=== PATIENT | female | born 1955 | race Caucasian/White ===

== ENCOUNTER 2016-03-07 | Outpatient (CLI) | payer OTHER | END 2016-03-07 17:45 | disposition critical access hospital (66) | CPT/HCPCS: A0425; A0427 ==

== ENCOUNTER 2016-03-07 17:57 | Emergency (ER) | payer OTHER ==
[2016-03-07] MEDS ORDERED: diazePAM INJ 5 MG/ML SYRINGE IVP STA (18:52)
[2016-03-07] MEDS ORDERED: ONDANSETRON 4 MG/2 ML VIAL IVP STA (18:52)
[2016-03-07] MEDS ORDERED: SODIUM CHLORIDE 0.9% 1,000 ML IV ONE (18:52)
[2016-03-07] MEDS ORDERED: diazePAM INJ 5 MG/ML SYRINGE ONE (18:58)
[2016-03-07] MEDS ORDERED: ONDANSETRON 4 MG/2 ML VIAL ONE (18:59)
[2016-03-07] MEDS ORDERED: MECLIZINE 12.5 MG TABLET PO STA ×2 (19:33→20:24)
[2016-03-07] MEDS ORDERED: MECLIZINE 12.5 MG TABLET PO ONE ×2 (19:39→20:27)
[2016-03-07] MEDS ORDERED: ONDANSETRON ODT 4 MG Prepack 2 TL STA (20:24)
[2016-03-07] MEDS ORDERED: ONDANSETRON ODT 4 MG Prepack 2 TL ONE (20:27)
== END 2016-03-07 20:30 | disposition home or self-care (01) ==
DX: H81.391 Other peripheral vertigo, right ear (principal); J44.9 Chronic obstructive pulmonary disease, unspecified; I10 Essential (primary) hypertension; J45.909 Unspecified asthma, uncomplicated; Z87.891 Personal history of nicotine dependence
CPT/HCPCS: 36415; 80053; 83690; 85025; 96374; 96375; 99284; A9270

== ENCOUNTER 2016-03-13 10:17 | Outpatient (CLI) | payer OTHER | END 2016-03-13 10:18 | disposition home or self-care (01) | DX: E78.00 Pure hypercholesterolemia, unspecified (principal); R73.9 Hyperglycemia, unspecified; Z51.81 Encounter for therapeutic drug level monitoring ==

== ENCOUNTER 2016-07-20 08:00 | Outpatient (CLI) | payer OTHER ==
[2016-07-20 19:47] LABS: CALCIUM 9.2 mg/dL (8.5-10.3); CREATININE 0.6 mg/dL (0.4-1.0); POTASSIUM 3.7 mmol/L (3.5-5.0)
== END 2016-07-20 08:01 | disposition home or self-care (01) ==
LOC: LAB.WCP 08:00
PROVIDERS: ATTEND Physician Assistant Medical
DX: Z51.81 Encounter for therapeutic drug level monitoring (principal)
CPT/HCPCS: 36415; 80048

== ENCOUNTER 2016-07-23 08:58 | Emergency (ER) | payer OTHER ==
[2016-07-23 11:25] VITALS: BP 165/88
--- NOTE | 2016-07-23 11:35 | ED Physician Documentation ---
History of Present Illness - Stated complaint Stated Complaint: HEAD SPINNING - Chief complaint Chief Complaint: General - History obtained from History obtained from: Patient - History of Present Illness Timing: Other (60-year-old woman has been having ongoing intermittent vertigo for the last 6 months or so. Maybe once a month. Meclizine is helpful but it takes a while to work. She describes a spinning sensation associated with nausea and vomiting. There is no associated diplopia, headache, weakness, numbness, or tingling. She seen her physician for this and it is planning an outpatient MRI. 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 - Present Medications Home Medications: Ambulatory Orders Medication Instructions Recorded Confirmed Ipratropium [Atrovent] 2 puffs PO PRN PRN 09/13/13 07/23/16 Tiotropium [place] [Spiriva] 1 puffs INH DAILY 09/13/13 07/23/16 Fluticasone [Flonase] 1 spray PO DAILY 03/07/16 07/23/16 Meclizine [Antivert] 25 mg PO Q6H PRN #10 tablet 03/07/16 07/23/16 Mometasone/Formoterol [Dulera 200 1 spray PO DAILY 03/07/16 07/23/16 Mcg/5 Mcg Inhaler] Ondansetron HCl [Zofran] 4 mg PO Q6H PRN #10 tablet 03/07/16 07/23/16 Valsartan/Hydrochlorothiazide 1 tab PO DAILY 03/07/16 07/23/16 [Diovan Hct 320-12.5 mg Tab] Ondansetron HCl [Zofran] 4 mg PO Q6H PRN #10 tablet 07/23/16 - Allergies Allergies/Adverse Reactions: Allergies Allergy/AdvReac Type Severity Reaction Status Date / Time Sulfa (Sulfonamide Allergy Rash Verified 09/13/13 21:02 Antibiotics) - Social History Does the pt smoke?: Yes Smoking Status: Former smoker Does the pt drink ETOH?: Yes Does the pt have substance abuse?: No - Immunizations Immunizations are current?: No PD ED PE NORMAL - Vitals Vital signs reviewed: Yes - General General: Alert and oriented X 3, No acute distress - HEENT HEENT: PERRL, EOMI, Ears normal, Pharynx benign - Neck Neck: Supple, no meningeal sign, No bony TTP - Neuro Neuro: Alert and oriented X 3, No motor deficit, No sensory deficit, Normal speech, Other (NIHSS zero) - Psych Psych: Normal mood, Normal affect Results - Vitals Vitals: Vital Signs - 24 hr 07/23/16 07/23/16 09:06 11:24 Temperature 36.3 C L Heart Rate 86 88 Respiratory 16 18 Rate Blood Pressure 149/87 H 165/88 H O2 Saturation 97 99 Oxygen O2 Source Room air PD MEDICAL DECISION MAKING - ED course ED course: 60-year-old woman with recurrent intermittent peripheral vertigo by history, followup was advised, she is feeling better at this juncture. Departure - Departure Disposition: 01 Home, Self Care Clinical Impression: Peripheral vertigo Qualifiers: Laterality: unspecified laterality Qualified Code(s): H81.399 - Other peripheral vertigo, unspecified ear Condition: Good Record reviewed to determine appropriate education?: Yes Instructions: ED BPV Vertigo Prescriptions: Ondansetron HCl [Zofran] 4 mg PO Q6H PRN #10 tablet PRN Reason: Nausea / Vomiting Comments: Your blood pressure was elevated today on check in to the emergency department. This does not mean that you have hypertension, it is a common phenomenon to check into the emergency department and have elevated blood pressure. I recommend that you see your primary care physician within the week to have it rechecked when you're feeling better.
== END 2016-07-23 11:49 | disposition home or self-care (01) ==
LOC: ED 08:58
DX: H81.399 Other peripheral vertigo, unspecified ear (principal); I10 Essential (primary) hypertension; J44.9 Chronic obstructive pulmonary disease, unspecified; J45.909 Unspecified asthma, uncomplicated; Z87.891 Personal history of nicotine dependence
CPT/HCPCS: 99283

== ENCOUNTER 2016-08-13 12:58 | Outpatient (CLI) | payer OTHER ==
[2016-08-13] MEDS ORDERED: GADOBUTROL 10 MMOL/10 ML SYRINGE IVP ONE (13:46)
--- NOTE | 2016-08-13 15:04 | MRI Report ---
EXAM: MRI BRAIN AND INTERNAL AUDITORY CANAL (IAC), WITHOUT WITH CONTRAST. EXAM DATE: 08/13/2016 01:59 PM. CLINICAL HISTORY: Vertigo. COMPARISON: None. TECHNIQUE: Multiplanar, multisequence T1-weighted and fluid-sensitive MRA sequences of the brain and IACs were performed. Other: None. IV Contrast: 9 cc Gadavist. FINDINGS: Brain Volume: Normal for age. Parenchyma/Dura: No masses, infarcts, or hemorrhage. No white matter lesions identified. No cortical signal abnormality is seen. No abnormal enhancement. Internal Auditory Canals (IACs): Normal. No cranial nerve lesion or inflammatory process identified. The inner ear structures are symmetric and unremarkable. Ventricles/Cisterns: No hydrocephalus. No abnormal extra-axial fluid collection or hemorrhage. Orbits: The globes, optic nerve sheath complex, extraocular muscles, and orbital fat are unremarkable . Sella Turcica: The pituitary gland, cavernous sinuses, suprasellar cistern, and optic chiasm are unre markable. A tiny, 1.4 mm, cyst is seen superiorly in the midline of the pituitary gland at the base o f the pituitary stalk. This could represent small focus of invagination of CSF versus small pars inte rmedia cyst. Vasculature: Normal signal flow void is seen in the major arterial structures at the skull base. The left vertebral artery is dominant. The dural sinuses are patent and enhance normally. Sinuses: No sinusitis evident. Bones: Normal. Other: None. IMPRESSION: 1. Negative MRI of the brain without and with contrast. No acute abnormality. 2. Negative MRI of the IAC and posterior fossa. [facility] Referring Provider Line: [phone] SITE ID: [id number]
== END 2016-08-13 12:59 | disposition home or self-care (01) ==
LOC: DI 12:58
PROVIDERS: ATTEND Physician Assistant Medical
DX: R42 Dizziness and giddiness (principal)
CPT/HCPCS: 70553; A9585

== ENCOUNTER 2018-10-24 10:07 | Outpatient (CLI) | payer OTHER ==
[2018-10-24 10:29] LABS: BASOPHILS % (AUTO) 0.5 %; EOSINOPHILS # (AUTO) 0.1 10^3/uL (0.0-0.7); EOSINOPHILS % (AUTO) 1.3 %; HGB - HEMOGLOBIN 14.2 g/dL (12.0-16.0); LYMPHOCYTES # (AUTO) 1.9 10^3/uL (1.5-3.5); LYMPHOCYTES % (AUTO) 33.3 %; MEAN CORPUSCULAR HEMOGLOBIN 32.7 pg (27.0-31.0); MEAN CORPUSCULAR HGB CONC 33.1 g/dL (32.0-36.0); MEAN CORPUSCULAR VOLUME 98.8 fL (81.0-99.0); MEAN PLATELET VOLUME 9.8 fL (7.9-10.8); MONOCYTES # (AUTO) 0.5 10^3/uL (0.0-1.0); MONOCYTES % (AUTO) 9.5 %; NEUTROPHILS # (AUTO) 3.1 10^3/uL (1.5-6.6); NEUTROPHILS % (AUTO) 55.2 %; PLT - PLATELET COUNT 233 10^3/uL (130-450); RED BLOOD COUNT 4.34 10^6/uL (4.20-5.40); RED CELL DISTRIBUTION WIDTH 12.7 % (12.0-15.0); WHITE BLOOD COUNT 5.6 x10^3/uL (4.8-10.8)
[2018-10-24 10:52] LABS: HB2 TOTAL 14.7 g/dL; HEMOGLOBIN A1C 0.55 g/dL; HEMOGLOBIN A1C % 5.6 % (4.6-6.2)
[2018-10-24 13:42] LABS: ALBUMIN 4.6 g/dL (3.2-5.5); ALBUMIN/GLOBULIN RATIO 1.6 (1.0-2.2); ALKALINE PHOSPHATASE 16 IU/L (42-121); ALT ALANINE AMINOTRANSFERASE 35 IU/L (10-60); AST ASPARTATE AMINOTRANSFERASE 28 IU/L (10-42); BILIRUBIN,TOTAL 0.8 mg/dL (0.2-1.0); BUN - BLOOD UREA NITROGEN 11 mg/dL (6-20); CALCIUM 9.1 mg/dL (8.5-10.3); CARBON DIOXIDE - CO2 29 mmol/L (21-32); CHLORIDE 98 mmol/L (101-111); CHOLESTEROL 210 mg/dL; CREATININE 0.6 mg/dL (0.4-1.0); GFR - MDRD 100 (>89); GLUCOSE 113 mg/dL (70-100); HDL CHOLESTEROL 105 mg/dL; SODIUM 138 mmol/L (135-145); TOTAL PROTEIN 7.5 g/dL (6.7-8.2)
== END 2018-10-24 10:08 | disposition home or self-care (01) ==
LOC: LAB 10:07
PROVIDERS: ATTEND Physician Assistant Medical
DX: I10 Essential (primary) hypertension (principal); E78.5 Hyperlipidemia, unspecified; R73.9 Hyperglycemia, unspecified
CPT/HCPCS: 36415; 80053; 80061; 83036; 83721; 84443; 85025

== ENCOUNTER 2019-01-07 11:40 | Day surgery (SDC) | payer OTHER ==
[2019-01-07] MEDS ORDERED: LACTATED RINGERS 1,000 ML IV ONE (11:43)
[2019-01-07] MEDS ORDERED: fentaNYL 250 MCG/5 ML VIAL IVP ONE (13:11)
[2019-01-07] MEDS ORDERED: MIDAZOLAM 2 MG/2 ML VIAL IVP ONE (13:11)
[2019-01-07 14:21] VITALS: BP 128/87
== END 2019-01-07 11:41 | disposition home or self-care (01) ==
LOC: SDS 11:40
PROVIDERS: ATTEND Surgery
PROC: 0DBK8ZZ Excision of Ascending Colon, Via Natural or Artificial Opening Endoscopic (ICD-10-PCS; 2019-01-07)
PROC: 0DBL8ZZ Excision of Transverse Colon, Via Natural or Artificial Opening Endoscopic (ICD-10-PCS; principal; 2019-01-07 12:45)
DX: Z12.11 Encounter for screening for malignant neoplasm of colon (principal); D12.2 Benign neoplasm of ascending colon; D12.3 Benign neoplasm of transverse colon; K57.30 Diverticulosis of large intestine without perforation or abscess without bleeding; J43.9 Emphysema, unspecified; I10 Essential (primary) hypertension; H91.90 Unspecified hearing loss, unspecified ear; Z79.51 Long term (current) use of inhaled steroids; Z87.891 Personal history of nicotine dependence; J32.9 Chronic sinusitis, unspecified
CPT/HCPCS: 45380; 45385; J3010; J7120

== ENCOUNTER 2019-04-09 11:14 | Outpatient (CLI) | payer BC, MEDICARE ==
--- NOTE | 2019-04-09 12:40 | Mammography Report ---
Reason: ROUTINE MAMMO Procedure Date: 04/09/2019 Accession Number: [id number] / [id number] Procedure: BRETT - Screening Mammo w/Roland CPT Code: Final Report FULL RESULT: EXAM: Screening Mammo w/Roland DATE: 04/09/2019 11:51 AM CLINICAL HISTORY: Screening encounter. Family history of breast cancer in a sister at the age of 45. TECHNIQUE: (B) - Bilateral CC and MLO views were obtained. COMPARISON: 08/17/2014 and 04/22/2013. PARENCHYMAL PATTERN: (D) - The breast(s) demonstrate(s) heterogeneously dense fibroglandular parenchyma. FINDINGS: In the right superior medial breast at the 1:00 position approximately 9 cm from the nipple is a focal asymmetry with architectural distortion and possibly calcifications which requires additional spot views with magnification as well as ultrasound for clarification. There are no suspicious masses, calcifications, or areas of distortion in the left breast. IMPRESSION: Incomplete examination. BI-RADS category 0. RECOMMENDATION: (ADDMU) - Additional views using both Mammography and Ultrasound recommended. Right breast BI-RADS CATEGORY: (0) - Incomplete Examination - need additional evaluation. STANDARD QUALIFYING STATEMENTS: 1. This examination was not reviewed with the aid of Computer-Aided Detection (CAD). 2. A negative or benign imaging report should not preclude biopsy if clinically suspicious findings are present. 3. Dense breasts may obscure an underlying neoplasm. 4. This examination was reviewed with the aid of 3D breast imaging (tomosynthesis).
== END 2019-04-09 11:15 | disposition home or self-care (01) ==
LOC: DI 11:14
DX: Z12.31 Encounter for screening mammogram for malignant neoplasm of breast (principal); R92.8 Other abnormal and inconclusive findings on diagnostic imaging of breast; Z80.3 Family history of malignant neoplasm of breast
CPT/HCPCS: 77063; 77067

== ENCOUNTER 2020-04-21 08:51 | Outpatient (CLI) | payer MEDICARE, OTHER ==
--- NOTE | 2020-04-22 12:11 | Ultrasound Report ---
LIMITED ULTRASOUND OF RIGHT BREAST: 04/21/2020 CLINICAL: Palpable right breast lump. Comparison is made to exams dated: 04/21/2020 mammogram, 04/09/2019 mammogram, 08/17/2014 mammogram, and [facility] Color flow and real-time ultrasound of the right breast 1 o'clock, and retroareolar regions were perf ormed. Key scale images of the real-time examination were reviewed. IMPRESSION: SUSPICIOUS OF MALIGNANCY There is no abnormality seen in the right breast to correspond with the area of clinical concern and palpable abnormality. There is no abnormality seen in the right breast to correspond with the mammography finding at 1 o'cl ock in the sub-areolar depth, however, given the mammographic appearance stereo biopsy is recommended . These findings and recommendation were discussed with the patient by Dr Sibley. This exam was interpreted at Station ID: [id number]. Electronically Signed By: Leonides Diop acr/:04/21/2020 10:36:47 Ultrasound BI-RADS: 4b Moderate suspicion of malignancy BI-RADS CATEGORY: (4b) - Mod Susp Biopsy follow-up 20200421 Immediate follow-up LATERALITY: (B)
--- NOTE | 2020-04-22 12:11 | Mammography Report ---
BILATERAL DIGITAL DIAGNOSTIC MAMMOGRAM 3D/2D: 04/21/2020 CLINICAL: Palpable right breast lump. Comparison is made to exams dated: 04/09/2019 mammogram, 08/17/2014 mammogram, and 04/22/2013 mammogram - [facility]. The tissue of both breasts is predominantly fatty. There is a 0.9 cm x 0.4 cm mass with a spiculated margin and punctate calcifications in the right jose angel ast at 1 o'clock middle depth 9 cm from the nipple. This is seen in additional views. There is arch itectural distortion associated with the mass. No abnormality which corresponds with the subareolar abnormality is seen. No other significant masses, calcifications, or other findings are seen in either breast. IMPRESSION: INCOMPLETE: NEEDS ADDITIONAL IMAGING EVALUATION There is no abnormality seen in the right breast to correspond with the area of clinical concern and palpable abnormality in the sub-areolar depth. US will be performed and dictated separately. However the 0.9 cm x 0.4 cm mass in the right breast is indeterminate. An right breast ultrasound is recommended. US will be performed and dictated separately. This exam was interpreted at Station ID: [id number]. NOTE: For mammograms, a report in lay terms will be sent to the patient. Approximately 15% of breast malignancies will not be visualized mammographically. In the management of a palpable breast mass, a negative mammogram must not discourage biopsy of a clinically suspicious lesion. Electronically Signed By: Leonides Diop acr/:04/21/2020 10:33:22 ACR BI-RADS Category 0: Incomplete 3340F PARENCHYMAL PATTERN: (F) - The breast(s) demonstrate(s) diffuse fatty replacement. BI-RADS CATEGORY: (0) - 0 Ultrasound 20200421 Immediate follow-up LATERALITY: (B)
== END 2020-04-21 08:52 | disposition home or self-care (01) ==
LOC: DI 08:51
PROVIDERS: ATTEND Family Medicine
DX: N63.12 Unspecified lump in the right breast, upper inner quadrant (principal)

== ENCOUNTER 2020-07-08 15:13 | Outpatient (CLI) | payer MEDICARE, OTHER | END 2020-07-08 15:14 | disposition home or self-care (01) | LOC: COV 15:13 | PROVIDERS: ATTEND Surgery | DX: Z01.812 Encounter for preprocedural laboratory examination (principal); C50.911 Malignant neoplasm of unspecified site of right female breast; Z20.822 Contact with and (suspected) exposure to COVID-19 ==

== ENCOUNTER 2020-07-11 09:01 | Day surgery (SDC) | payer MEDICARE, OTHER ==
[~2020-07-11 09:01] MED LIST: BUFFERED LIDOCAINE 10 ML SYRINGE ONE; BUPIVACAINE 0.5% PF 10 ML VIAL ONE
[2020-07-11] MEDS ORDERED: LACTATED RINGERS 1,000 ML IV ONE ×3 (09:07→16:15)
[2020-07-11] MEDS ORDERED: ceFAZolin 2 GM/50 ML 2 GM/50 ML BAG IV ONE (09:19)
[2020-07-11] MEDS ORDERED: BUFFERED LIDOCAINE 10 ML SYRINGE IU ONE (11:13)
--- NOTE | 2020-07-11 12:48 | ANESTHESIA ---
Pre-Anesthesia VS, & Labs - Diagnosis right breast cancer - Procedure right breast lumpectomy, sentinel node biopsy Vital Signs: Temp Pulse Resp BP Pulse Ox 36.2 C L 84 16 146/93 H 100 07/11/20 09:24 07/11/20 09:24 07/11/20 09:24 07/11/20 09:24 07/11/20 09:24 Height: 5 ft 3 in Weight (kg): 83.6 kg Body Mass Index: 32.6 BMI Classification: Obese - NPO >8 hours - Is Patient ?: No Home Medications and Allergies Home Medications: Ambulatory Orders Hydrochlorothiazide 25 mg PO DAILY 07/01/20 Losartan Potassium [Cozaar] 100 mg PO DAILY 07/01/20 guaiFENesin [Mucinex] 600 mg PO BID 07/01/20 Tiotropium [place] [Spiriva] 1 puffs INH DAILY 09/13/13 Fluticasone [Flonase] 1 spray PO DAILY 03/07/16 Fluticasone/Salmeterol [Advair 250-50 Diskus] 1 puffs INH BID 01/06/19 Hydrochlorothiazide 25 mg PO DAILY 07/01/20 Losartan Potassium [Cozaar] 100 mg PO DAILY 07/01/20 guaiFENesin [Mucinex] 600 mg PO BID 07/01/20 Allergies/Adverse Reactions: Allergies Allergy/AdvReac Type Severity Reaction Status Date / Time Sulfa (Sulfonamide Allergy Rash Verified 07/08/20 13:12 Antibiotics) Anes History & Medical History - Anesthetic History Anesthesia Complications: reports: Post-Operative Nausea/Vomiting - Medical History Cardiovascular: reports: Hypertension Pulmonary: reports: COPD Gastrointestinal: reports: None Urinary: reports: None Musculoskeletal: reports: Osteoarthritis Endocrine/Autoimmune: reports: None Skin: reports: None Smoking Status: Former smoker History of Cancer?: Yes - Surgical History General: reports: Colonoscopy Gynecologic: reports: Dilation and currettage, Tubal ligation Orthopedic: reports: Other Exam Dental: Dentures full Upper, Partials Lower Mouth Opening: Greater than 4 Fingerbreadths Neck Mobility: Normal Mallampati classification: II Thyromental Distance: greater than 6 cm Respiratory: Lungs clear Cardiovascular: Regular rate Plan Anesthesia Type: General Consent for Procedure(s) Verified and Reviewed: Yes Code Status: Attempt Resuscitation ASA classification: 2-Mild systemic disease Is this case an emergency?: No
[2020-07-11] MEDS ORDERED: fentaNYL 100 MCG/2 ML VIAL IVP PRN (12:52)
[2020-07-11] MEDS ORDERED: NALOXONE 0.4 MG/ML VIAL IVP PRN (12:52)
[2020-07-11] MEDS ORDERED: METOCLOPRAMIDE 10 MG/2 ML VIAL IVP PRN (12:52)
[2020-07-11] MEDS ORDERED: ONDANSETRON 4 MG/2 ML VIAL IVP PRN ×2 (12:52→15:37)
[2020-07-11] MEDS ORDERED: ePHEDrine 50 MG/ML VIAL IVP PRN (12:52)
[2020-07-11] MEDS ORDERED: MORPHINE 2 MG/ML CARPUJECT IVP PRN (12:52)
[2020-07-11] MEDS ORDERED: ATROPINE ABBOJECT 1 MG/10 ML SYRINGE IVP PRN (12:52)
[2020-07-11] MEDS ORDERED: LACTATED RINGERS 1,000 ML IV SCH (13:00)
--- NOTE | 2020-07-11 13:07 | Nuclear Medicine Report ---
PROCEDURE: Lymph Node Scintigraphy INDICATIONS: RT BREAST CA RADIOPHARMACEUTICAL: 0.5-1.0 mCi Millipore filtered Tc-99m sulfur colloid. TECHNIQUE: The area around the nipple was prepped and draped in a sterile fashion. Tc-99m sulfur colloid was in jected intra-dermally in the outer edge of the areola in the right breast. Images were obtained subs equently. A body contour outline was obtained. FINDINGS: There ilymph is a single node in the ipsilateral axillaIMPRESSION, faintly visualized on delayed imag ing in the ipsilateral axilla. IMPRESSION: Administration of radiotracer into the right breast periareolar region for intra-operati ve sentinel lymph node localization-single faintly visualized ipsilateral lymph node identified on th e right at the axilla.. Reviewed by: All English MD on 07/11/2020 1:06 PM PDT Approved by: All English MD on 07/11/2020 1:06 PM PDT Station ID: [id number]
[2020-07-11] MEDS ORDERED: BUPIVACAINE 0.5% PF 30 ML VIAL ONE (13:22)
[2020-07-11] MEDS ORDERED: LIDOCAINE MPF 2%-EPI 1:200000 20 ML VIAL ONE (13:22)
[2020-07-11] MEDS ORDERED: PROPOFOL 200 MG/20 ML VIAL IVP ONE (13:28)
[2020-07-11] MEDS ORDERED: MIDAZOLAM 2 MG/2 ML VIAL ONE (13:53)
[2020-07-11] MEDS ORDERED: fentaNYL 100 MCG/2 ML VIAL ONE (13:53)
[2020-07-11] MEDS ORDERED: SCOPOLAMINE PATCH TOP ONE (13:57)
[2020-07-11] MEDS ORDERED: LIDOCAINE 2%-EPI 1:100000 20 ML MDV SUBQ ONE (14:45)
[2020-07-11] MEDS ORDERED: BUPIVACAINE 0.5% PF 30 ML VIAL INFIL ONE (14:45)
--- NOTE | 2020-07-11 15:33 | OPERATIVE REPORT ---
Operative Report - General Procedure Date: 07/11/20 Planned Procedure: Breast central lumpectomy and sentinel node biopsy Pre-Op Diagnosis: Biopsy-proven invasive malignancy of the right breast with a large area of Procedure Performed: Right breast central lumpectomy and sentinel node biopsy Post Op Diagnosis: SameSame - Procedure Note Primary Surgeon: Cristi Anesthesia Provider: OLIVER Restrepo Anesthesia Technique: General LMA, Local Pathology: 1. 1 level 2 axillary sentinel node to pathology in formalin. 10-second counts greater than 3500. Background in the axilla is 5 background in the room is 0 2. Right breast central lumpectomy specimen marked for orientation 3. Right breast additional posterior margin marked for orientation 4. Right breast additional superior margin marked for orientation. Estimated Blood Loss (mL): 20 Findings: Mass, clip, and wire all located within the specimen but at the eccentric superior margin. Area of DCIS well centered.Additional posterior and superior margins were taken because of the eccentric position of the invasive lesion. Complications: None apparent - Other Other Information/Narrative: After obtaining informed consent, the patient was brought to the operating room and placed in the supine position on the operating table. Following successful induction of general endotracheal anesthesia, appropriate padding of all bony prominences, and placement of appropriate monitors, the right breast was prepped and draped in the standard surgical fashion. A timeout was held per scope protocol. All elements of the surgical safety checklist were followed before, during, and after the procedure. We began the procedure with a sentinel node dissection. The site of the brightest node had been marked in radiology with 2 skin marker axis. The neoprobe was used to identify the site of greatest uptake at level 2 in the patient's axilla. An incision was created over this area of uptake and carried through the skin and subcutaneous tissue to enter the axillary node packet. The sentinel node was identified. It was noted to be grossly normal in appearance. It was carefully dissected free from surrounding stop structures sharply, all lymphatics and vasculature were addressed with clips prior to division. The node was liberated into the field. 10-second counts are recorded. The of the axilla did not reveal any other targets for biopsy.Background in the axilla was 5 and background in the room was 0. The axillary incision was then closed in 2 layers with Vicryl and Monocryl sutures. We turned our attention to the right breast mass. The area over the mass and in the periareolar region was infiltrated with a mixture of local anesthetics to cry to field block. A periareolar incision was then created and the mass and associated wire carefully dissected sharply from the subcutaneous tissue anteriorly and from the retromammary bursa posteriorly. The mass was removed in a single piece in a medial to lateral fashion. It was marked with a short stitch superior, long stitch lateral, and double stitch anterior. It was finally liberated sharply and delivered into the field. The wound was checked for hemostasis. It was irrigated again with warm water. The specimen xray was examined and found to contain the target clip and lesion well centered at the superior eccentric portion of the specimen. The area of suspected DCIS was well centered. An additional posterior and superior margins were obtained at the superior most eccentric area of the specimen at the site of the invasive lesion. It was then checked for hemostasis carefully and irrigated with warm water. The wound was then closed in 2 layers with Vicryl and Monocryl sutures. All sponge, needle, and instrument counts were correct at the conclusion of the case. The patient was let awakened anesthesia without difficulty and taken to the postanesthesia care unit in good condition.
[2020-07-11] MEDS ORDERED: ACETAMINOPHEN 325 MG TABLET PO PRN (15:37)
[2020-07-11] MEDS ORDERED: oxyCODONE 5 MG TABLET PO PRN (15:37)
[2020-07-11] MEDS ORDERED: IBUPROFEN 600 MG TABLET PO PRN (15:37)
[2020-07-11] MEDS ORDERED: KETOROLAC 15 MG/ML VIAL ONE (15:45)
[2020-07-11] MEDS ORDERED: KETOROLAC 15 MG/ML VIAL IVP PRN (15:49)
[2020-07-11] MEDS ORDERED: HYDROmorphone 1 MG/ML CARPUJECT ONE (15:56)
[2020-07-11] MEDS: HYDROmorphone 0.5 MG/0.5 ML SYRINGE IVP PRN ×2 (15:56→16:08)
[2020-07-11] MEDS ORDERED: oxyCODONE 5 MG TABLET ONE (16:32)
--- NOTE | 2020-07-11 16:54 | ANESTHESIA POST OP EVALUATION ---
Anesthesia Post Eval - Post Anesthesia Eval Vitals: Last Vital Signs Temp 36.4 C L 07/11/20 16:35 Pulse 77 07/11/20 16:35 Resp 14 07/11/20 16:35 BP 129/69 07/11/20 16:35 Pulse Ox 97 07/11/20 16:35 CV Function Including HR & BP: Stable Pain Control: Satisfactory Nausea & Vomiting: Negative Mental Status: Baseline Respiratory Status: Airway Patent Hydration Status: Satisfactory Anesthesia Complications: None
[2020-07-11 17:10] VITALS: BP 132/70
--- NOTE | 2020-07-12 05:30 | Mammography Report ---
SPECIMEN: 07/11/2020 CLINICAL: Right breast specimen. Correlation is made to exams dated: 07/11/2020 localization - [facility], 05/25/2020 specimen, 05/25/2020 stereotactic biopsy - [facility], 04/21/2020 ultrasound, and 04/21/2020 ma mmogram - [facility]. Specimen from OR shows the loc clip, the distal loc wire, and internal lesion at specimen margin. IMPRESSION: SPECIMEN Specimen as discussed. Dr. Colin included tissure from more anterior to the loc clip also, based on review of the breast MRI. This exam was interpreted at Station ID: [id number]. All English M.D. sdh/:07/11/2020 15:34:03 BI-RADS CATEGORY: () - Unspecified - other recall n/a LATERALITY: (B)
--- NOTE | 2020-07-12 05:30 | Mammography Report ---
MAMMOGRAPHY GUIDED WIRE LOCALIZATION RIGHT BREAST WITH POST DIGITAL MAMMOGRAPHIC IMAGING AND handsomexcutiveA [facility] SPECIMEN IMAGIN07/11/2020 CLINICAL: Post wire placement. Correlation is made to exams dated: 06/16/2020 breast MRI, 05/25/2020 stereotactic biopsy - [facility], 04/21/2020 mammogram, 04/09/2019 mammogram, and 08/17/2014 mammogram - [facility]. A wire localization using mammography guidance was performed for the concerning marker clip located i n the right breast at 1 o'clock middle depth. This was described on the previous mammography report. The skin was prepped in the usual manner. Local anesthetic was administered to the access site. T he localization was approached from the craniocaudal aspect. A J-hook wire was inserted adjacent to the marker through an introducer device under mammography guidance. A sterile dressing was applied t o the access site. Post placement digital mammographic imaging demonstrates the tip demarcates the b oundaries adjacent to the marker. IMPRESSION: WIRE LOCALIZATION Wire localization for the marker clip in the right breast at 1 o'clock middle depth was successful. The imaged specimen includes the lesion, a biopsy clip, and the distal portion of the localization wi re. This exam was interpreted at Station ID: [id number]. All English M.D. sdh/:07/11/2020 15:31:38 BI-RADS CATEGORY: () - Unspecified - other recall n/a LATERALITY: (B)
[2020-07-16] MEDS ORDERED: IBUPROFEN 600 MG TABLET PO PRN (18:00)
== END 2020-07-11 09:02 | disposition home or self-care (01) ==
LOC: SDS 09:01
PROVIDERS: ATTEND Surgery
PROC: 0HBT0ZZ Excision of Right Breast, Open Approach (ICD-10-PCS; 2020-07-11)
PROC: 07B50ZX Excision of Right Axillary Lymphatic, Open Approach, Diagnostic (ICD-10-PCS; principal; 2020-07-11 13:00)
DX: C50.111 Malignant neoplasm of central portion of right female breast (principal); Z17.0 Estrogen receptor positive status [ER+]; J43.9 Emphysema, unspecified; I10 Essential (primary) hypertension; E78.5 Hyperlipidemia, unspecified; F41.9 Anxiety disorder, unspecified; F41.0 Panic disorder [episodic paroxysmal anxiety]; F40.240 Claustrophobia; K21.9 Gastro-esophageal reflux disease without esophagitis; H91.90 Unspecified hearing loss, unspecified ear; E66.9 Obesity, unspecified; Z68.32 Body mass index [BMI] 32.0-32.9, adult; Z79.899 Other long term (current) drug therapy; Z87.891 Personal history of nicotine dependence
CPT/HCPCS: 19281; 19301; 38525; 76098; 78195; 88307; 88341; 88342; 88360; A9270; J0690; J1170; J3490; J7120

== ENCOUNTER 2020-07-29 07:00 | Outpatient (CLI) | payer MEDICARE, OTHER | END 2020-07-29 23:59 | disposition home or self-care (01) | LOC: COV 07:00 | PROVIDERS: ATTEND Surgery | DX: Z01.812 Encounter for preprocedural laboratory examination (principal); C50.911 Malignant neoplasm of unspecified site of right female breast; Z20.822 Contact with and (suspected) exposure to COVID-19 ==

== ENCOUNTER 2020-08-01 06:21 | Day surgery (SDC) | payer MEDICARE, OTHER ==
[~2020-08-01 06:21] MED LIST changes: -BUFFERED LIDOCAINE 10 ML SYRINGE ONE; -BUPIVACAINE 0.5% PF 10 ML VIAL ONE; +ceFAZolin 2 GM/50 ML 2 GM/50 ML BAG IV ONE
[2020-08-01] MEDS ORDERED: LACTATED RINGERS 1,000 ML IV ONE ×5 (06:26→09:50)
[2020-08-01] MEDS ORDERED: LIDOCAINE-MPF 2% 5 ML VIAL ONE (07:08)
[2020-08-01] MEDS ORDERED: PROPOFOL 200 MG/20 ML VIAL IVP ONE (07:08)
[2020-08-01] MEDS ORDERED: fentaNYL 100 MCG/2 ML VIAL ONE ×2 (07:08→08:55)
[2020-08-01] MEDS ORDERED: DEXAMETHASONE 4 MG/ML VIAL ONE (07:09)
[2020-08-01] MEDS ORDERED: ONDANSETRON 4 MG/2 ML VIAL ONE (07:09)
[2020-08-01] MEDS ORDERED: KETOROLAC 30 MG/ML VIAL ONE (07:09)
[2020-08-01] MEDS ORDERED: fentaNYL 100 MCG/2 ML VIAL IVP PRN (07:12)
[2020-08-01] MEDS ORDERED: MORPHINE 2 MG/ML CARPUJECT IVP PRN (07:12)
[2020-08-01] MEDS ORDERED: HYDROmorphone 0.5 MG/0.5 ML SYRINGE IVP PRN (07:12)
[2020-08-01] MEDS ORDERED: ONDANSETRON 4 MG/2 ML VIAL IVP PRN ×2 (07:12→09:27)
[2020-08-01] MEDS ORDERED: METOCLOPRAMIDE 10 MG/2 ML VIAL IVP PRN (07:12)
[2020-08-01] MEDS ORDERED: NALOXONE 0.4 MG/ML VIAL IVP PRN (07:12)
[2020-08-01] MEDS ORDERED: ATROPINE ABBOJECT 1 MG/10 ML SYRINGE IVP PRN (07:12)
[2020-08-01] MEDS ORDERED: ePHEDrine 50 MG/ML VIAL IVP PRN (07:12)
--- NOTE | 2020-08-01 07:12 | ANESTHESIA ---
Pre-Anesthesia VS, & Labs - Diagnosis breast CA - Procedure completion of mastectomy Vital Signs: Temp Pulse Resp BP Pulse Ox 36.1 C L 86 15 149/93 H 98 08/01/20 06:33 08/01/20 06:33 08/01/20 06:33 08/01/20 06:33 08/01/20 06:33 Height: 5 ft 3 in Weight (kg): 84.5 kg Body Mass Index: 33.0 BMI Classification: Obese - NPO >8 hours - Is Patient ?: No Home Medications and Allergies Tiotropium [place] [Spiriva] 1 puffs INH DAILY 09/13/13 Fluticasone [Flonase] 1 spray PO DAILY 03/07/16 Fluticasone/Salmeterol [Advair 250-50 Diskus] 1 puffs INH BID 01/06/19 Losartan Potassium [Cozaar] 100 mg PO DAILY 07/01/20 guaiFENesin [Mucinex] 600 mg PO BID 07/01/20 hydroCHLOROthiazide [Hydrochlorothiazide] 25 mg PO DAILY 07/01/20 Allergies/Adverse Reactions: Allergies Allergy/AdvReac Type Severity Reaction Status Date / Time Sulfa (Sulfonamide Allergy Rash Verified 08/01/20 06:51 Antibiotics) Anes History & Medical History - Anesthetic History Anesthesia Complications: reports: Post-Operative Nausea/Vomiting - Medical History Cardiovascular: reports: Hypertension Pulmonary: reports: COPD Gastrointestinal: reports: None Urinary: reports: None Musculoskeletal: reports: Osteoarthritis Endocrine/Autoimmune: reports: None Skin: reports: None Smoking Status: Former smoker History of Cancer?: Yes - Surgical History General: reports: Colonoscopy Cardiothoracic: Gynecologic: reports: Dilation and currettage, Tubal ligation Orthopedic: reports: Other Exam General: Alert Dental: Dentures full Upper, Partials Lower Mouth Opening: Can't Open Mouth Neck Mobility: Normal Mallampati classification: III Respiratory: Lungs clear Cardiovascular: Regular rate Plan Anesthesia Type: General Consent for Procedure(s) Verified and Reviewed: Yes Code Status: Attempt Resuscitation ASA classification: 2-Mild systemic disease Is this case an emergency?: No
[2020-08-01] MEDS ORDERED: BUPIVACAINE 0.5% PF 30 ML VIAL ONE (07:14)
[2020-08-01] MEDS ORDERED: LIDOCAINE MPF 2%-EPI 1:200000 20 ML VIAL ONE (07:14)
[2020-08-01] MEDS ORDERED: SCOPOLAMINE PATCH TOP ONE (07:18)
[2020-08-01] MEDS ORDERED: LACTATED RINGERS 1,000 ML IV SCH (08:00)
[2020-08-01] MEDS ORDERED: BUPIVACAINE 0.5% PF 30 ML VIAL INFIL ONE (08:30)
[2020-08-01] MEDS ORDERED: LIDOCAINE 2%-EPI 1:100000 20 ML MDV SUBQ ONE (08:36)
--- NOTE | 2020-08-01 09:22 | OPERATIVE REPORT ---
Operative Report - General Procedure Date: 08/01/20 Planned Procedure: Completion mastectomy Pre-Op Diagnosis: Multifocal right breast cancer Procedure Performed: Completion mastectomy Post Op Diagnosis: Same - Procedure Note Primary Surgeon: Cristi Secondary Surgeon: Alyssa Anesthesia Provider: OLIVER Payne Anesthesia Technique: General LMA Pathology: Right breast to pathology marked for orientation Estimated Blood Loss (mL): 50 Drain/Tube Type: Herrera drain Indications: Multifocal right breast cancer discovered on final pathology after lumpectomy Findings: Well vascularized breast tissue Bruising consisitent with prior operation Complications: None apparent - Other Other Information/Narrative: After obtaining informed consent, the patient is brought to the operating room and placed in supine position on the operating table. Following successful induction of general anesthesia, appropriate padding of all bony prominences, and placement of appropriate monitors, the right breast and chest wall were prepped and draped in the standard surgical fashion. A timeout was held per scope protocol. All elements of the surgical safety checklist were followed before, during, and after the procedure. Following infiltration with local anesthetic, the existing incision was reopened revealing the hematoma in breast tissue. The hematoma was aspirated leaving otherwise well vascularized breast tissue.The tissue of the breast that was remaining was dissected from the overlying skin and subcutaneous tissue dividing Zechariah's ligaments carefully. Limits of dissection were the sternum medially, 2 cm inferior to the clavicle superiorly, the deltopectoral groove laterally, and the inframammary fold inferiorly. It was then removed from the chest wall to include the pectoralis fascia in a medial to lateral fashion. It was marked for orientation and passed from the table as a specimen.The wound was then checked for hemostasis and irrigated with warm water. It was aspirated free of all fluid and particulate matter. A pectoralis block was then performed by infiltrating a mixture of local anesthetics beneath the pectoralis major and even the pectoralis minor circumferentially in the operative wound. A 19 Portuguese Herrera drain was then placed in the inframammary pocket and brought out inferior medially. It was sewn into place. The incision was closed in 2 layers. Dermabond was applied to the skin. A Prevena device was then applied to the incision. Suction was maintained without leak. All sponge, needle, and instrument counts were correct at the conclusion of the case. The patient was allowed awaken from anesthesia without difficulty and taken to the postanesthesia care unit in good condition.
[2020-08-01] MEDS ORDERED: oxyCODONE 5 MG TABLET PO PRN (09:27)
[2020-08-01] MEDS ORDERED: IBUPROFEN 600 MG TABLET PO PRN (09:27)
[2020-08-01] MEDS ORDERED: ACETAMINOPHEN 325 MG TABLET PO PRN (09:27)
[2020-08-01] MEDS ORDERED: HYDROmorphone 1 MG/ML CARPUJECT ONE (09:30)
[2020-08-01] MEDS ORDERED: ACETAMINOPHEN 1,000 MG/100 ML 100 ML IV ONE ×2 (09:40→09:47)
--- NOTE | 2020-08-01 09:50 | ANESTHESIA POST OP EVALUATION ---
Anesthesia Post Eval - Post Anesthesia Eval Vitals: Last Vital Signs Temp 36.4 C L 08/01/20 09:32 Pulse 81 08/01/20 09:32 Resp 12 08/01/20 09:32 BP 148/76 H 08/01/20 09:32 Pulse Ox 96 08/01/20 09:32 CV Function Including HR & BP: Stable Pain Control: Satisfactory Nausea & Vomiting: Negative Mental Status: Baseline Respiratory Status: Airway Patent Hydration Status: Satisfactory Anesthesia Complications: None
[2020-08-01 11:03] VITALS: BP 162/89
== END 2020-08-01 06:22 | disposition home or self-care (01) ==
LOC: SDS 06:21
PROVIDERS: ATTEND Surgery
PROC: 0HTT0ZZ Resection of Right Breast, Open Approach (ICD-10-PCS; principal; 2020-08-01 07:30)
DX: C50.911 Malignant neoplasm of unspecified site of right female breast (principal); E66.9 Obesity, unspecified; Z68.33 Body mass index [BMI] 33.0-33.9, adult; Z87.891 Personal history of nicotine dependence; Z17.0 Estrogen receptor positive status [ER+]
CPT/HCPCS: 19303; J0131; J0690; J1170; J3490; J7120

== ENCOUNTER 2020-12-27 11:34 | Outpatient (CLI) | payer MEDICARE, OTHER ==
[2020-12-27 12:11] LABS: ALBUMIN 4.3 g/dL (3.2-5.5); ALBUMIN/GLOBULIN RATIO 1.2 (1.0-2.2); ALKALINE PHOSPHATASE 17 IU/L (42-121); ALT ALANINE AMINOTRANSFERASE 24 IU/L (10-60); AST ASPARTATE AMINOTRANSFERASE 26 IU/L (10-42); BILIRUBIN,TOTAL 0.7 mg/dL (0.2-1.0); BUN - BLOOD UREA NITROGEN 7 mg/dL (6-20); CALCIUM 9.5 mg/dL (8.5-10.3); CARBON DIOXIDE - CO2 29 mmol/L (21-32); CHLORIDE 96 mmol/L (101-111); CHOL/HDL RATIO 2.8 (<4.4); CHOLESTEROL 236 mg/dL; CREATININE 0.6 mg/dL (0.4-1.0); GFR - MDRD 100 (>89); GLUCOSE 111 mg/dL (70-100); HDL CHOLESTEROL 83 mg/dL; LDL CHOLESTEROL,CALCULATED 143 mg/dL; LDL/HDL RATIO 1.7 (<4.4); SODIUM 136 mmol/L (135-145); TOTAL PROTEIN 7.8 g/dL (6.7-8.2); TRIGLYCERIDES 52 mg/dL; VLDL CHOLESTEROL 10 mg/dL
[2020-12-27 12:17] LABS: ESTIMATED AVERAGE GLUCOSE 120 mg/dL (70-100); HEMOGLOBIN A1c% 5.8 % (4.27-6.07)
== END 2020-12-27 11:35 | disposition home or self-care (01) ==
LOC: LAB 11:34
PROVIDERS: ATTEND Physician Assistant Medical
DX: E78.5 Hyperlipidemia, unspecified (principal); R73.9 Hyperglycemia, unspecified
CPT/HCPCS: 36415; 80053; 80061; 83036; 83721

== ENCOUNTER 2020-12-29 14:34 | Outpatient (CLI) | payer MEDICARE, OTHER ==
--- NOTE | 2020-12-29 15:59 | DEXA Report ---
PROCEDURE: Dexa Spine and/or Hip INDICATIONS: POST MENOPAUSAL TECHNIQUE: Dual energy x-ray absorptiometry (DXA) was performed on a [employer] System. Regions measur ed are the AP Spine, femoral neck, and if needed forearm. COMPARISON: None. FINDINGS: Lumbar Spine: Bone Mineral Density 1.358 g/cm/cm,T score 1.5. Left Hip: Bone Mineral Density 0.947 g/cm/cm,T score -0.5. Left Femoral Neck: Bone Mineral Density 0.890 g/cm/cm, T score -1.1. (T score greater or equal to -1.0: NORMAL) (T score from -1.1 to -2.4: OSTEOPENIA) (T score less than or equal to -2.5 to: OSTEOPOROSIS) Impression: Osteopenia. Patients with diagnosis of osteoporosis or osteopenia should have regular bone mineral density assess ment. For those eligible for Medicare, routine testing is allowed once every 2 years. Testing frequ ency can be increased for patients who have rapidly progressing disease or for those who are receivin g medical therapy to restore bone mass. Reviewed by: Ja Bridges MD on 12/29/2020 3:58 PM PST Approved by: Ja Bridges MD on 12/29/2020 3:58 PM PST Station ID: [id number]
== END 2020-12-29 14:35 | disposition home or self-care (01) ==
LOC: DI 14:34
PROVIDERS: ATTEND Internal Medicine Hematology & Oncology
DX: M85.88 Other specified disorders of bone density and structure, other site (principal); Z78.0 Asymptomatic menopausal state

== ENCOUNTER 2021-06-23 10:29 | Outpatient (CLI) | payer MEDICARE, OTHER ==
[2021-06-23 11:18] LABS: ALBUMIN/GLOBULIN RATIO 1.2 (1.0-2.2); ALKALINE PHOSPHATASE 19 IU/L (42-121); ALT ALANINE AMINOTRANSFERASE 18 IU/L (10-60); AST ASPARTATE AMINOTRANSFERASE 15 IU/L (10-42); BILIRUBIN,TOTAL 0.9 mg/dL (0.2-1.0); BUN - BLOOD UREA NITROGEN 12 mg/dL (6-20); CALCIUM 9.3 mg/dL (8.5-10.3); CARBON DIOXIDE - CO2 29 mmol/L (21-32); CHLORIDE 95 mmol/L (101-111); CHOL/HDL RATIO 2.8 (<4.4); CHOLESTEROL 213 mg/dL; CREATININE 0.6 mg/dL (0.4-1.0); GFR - MDRD 100 (>89); GLUCOSE 104 mg/dL (70-100); HDL CHOLESTEROL 75 mg/dL; LDL CHOLESTEROL,CALCULATED 126 mg/dL; LDL/HDL RATIO 1.7 (<4.4); POTASSIUM 3.7 mmol/L (3.5-5.0); SODIUM 136 mmol/L (135-145); TOTAL PROTEIN 7.4 g/dL (6.7-8.2); TRIGLYCERIDES 59 mg/dL; VLDL CHOLESTEROL 12 mg/dL
== END 2021-06-23 10:30 | disposition home or self-care (01) ==
LOC: LAB 10:29
PROVIDERS: ATTEND Physician Assistant Medical
DX: E78.5 Hyperlipidemia, unspecified (principal)
CPT/HCPCS: 36415; 80053; 80061; 83721

== ENCOUNTER 2021-08-15 12:33 | Outpatient (CLI) | payer MEDICARE, OTHER ==
--- NOTE | 2021-08-16 09:05 | Mammography Report ---
UNILATERAL LEFT DIGITAL SCREENING MAMMOGRAM 3D/2D: 08/15/2021 CLINICAL: Family history of breast cancer. Routine screening. Personal history of right breast cancer . Comparison is made to exams dated: 07/11/2020 specimen, 07/11/2020 localization - [facility], 06/16/2020 breast MRI, 05/25/2020 specimen, 05/25/2020 stereotactic biopsy - [facility], and 04/21/2020 ultrasound - [facility]. The tissue of left breast is heterogene ously dense. This may lower the sensitivity of mammography. No significant masses, calcifications, or other findings are seen in the breast. There has been no significant interval change. IMPRESSION: NEGATIVE There is no mammographic evidence of malignancy. A 1 year screening mammogram is recommended. This exam was interpreted at Station ID: [id number]. NOTE: For mammograms, a report in lay terms will be sent to the patient. Approximately 15% of breast malignancies will not be visualized mammographically. In the management of a palpable breast mass, a negative mammogram must not discourage biopsy of a clinically suspicious lesion. Electronically Signed By: Felecia ivey/ronna:08/15/2021 15:23:42 ACR BI-RADS Category 1: Negative 3341F PARENCHYMAL PATTERN: (D) - The breast(s) demonstrate(s) heterogeneously dense fibroglandular parcieray milton. BI-RADS CATEGORY: (1) - 1 RECOMMENDATION: (ANNUAL) - Recommend routine annual screening mammography. [id number] 1 year screening LATERALITY: (B)
== END 2021-08-15 12:34 | disposition home or self-care (01) ==
LOC: DI.N 12:33
DX: Z12.31 Encounter for screening mammogram for malignant neoplasm of breast (principal); Z80.3 Family history of malignant neoplasm of breast; Z85.3 Personal history of malignant neoplasm of breast

== ENCOUNTER 2021-12-22 12:23 | Day surgery (SDC) | payer MEDICARE, OTHER ==
[2021-12-22] MEDS ORDERED: LACTATED RINGERS 1,000 ML IV ONE ×2 (12:50→15:22)
--- NOTE | 2021-12-22 13:58 | ANESTHESIA ---
Pre-Anesthesia VS, & Labs - Diagnosis hx of polyps - Procedure colonoscopy Vital Signs: Temp Pulse Resp BP Pulse Ox O2 Flow Rate 36.6 C 86 14 151/80 H 99 12/22/21 12:45 12/22/21 12:45 12/22/21 12:45 12/22/21 12:45 12/22/21 12:45 Height: 5 ft 3 in Weight (kg): 84.1 kg Body Mass Index: 32.8 BMI Classification: Obese - NPO >8 hours - Is Patient ?: No Home Medications and Allergies Tiotropium [place] [Spiriva] 1 puffs INH DAILY 09/13/13 Fluticasone [Flonase] 1 spray PO DAILY 03/07/16 Fluticasone/Salmeterol [Advair 250-50 Diskus] 1 puffs INH BID 01/06/19 Losartan Potassium [Cozaar] 100 mg PO DAILY 07/01/20 guaiFENesin [Mucinex] 600 mg PO BID 07/01/20 hydroCHLOROthiazide [Hydrochlorothiazide] 25 mg PO DAILY 07/01/20 Letrozole 1 tab PO DAILY 11/07/20 Allergies/Adverse Reactions: Allergies Allergy/AdvReac Type Severity Reaction Status Date / Time Sulfa (Sulfonamide Allergy Rash Verified 09/09/20 14:36 Antibiotics) Anes History & Medical History - Anesthetic History Anesthesia Complications: reports: No previous complications Family history of Anesthesia Complications: Denies Family history of Malignant Hyperthermia: Denies - Medical History Cardiovascular: reports: Hypertension Pulmonary: reports: COPD Gastrointestinal: reports: None, Colon polyps Urinary: reports: None Musculoskeletal: reports: Osteoarthritis Endocrine/Autoimmune: reports: None Skin: reports: None Smoking Status: Former smoker History of Cancer?: Yes (R breast) - Surgical History General: reports: Colonoscopy Cardiothoracic: Gynecologic: reports: Dilation and currettage, Tubal ligation, Mastectomy Orthopedic: reports: Other Exam General: Alert, Oriented x3, Cooperative Dental: WNL Mouth Openin Fingerbreadth Neck Mobility: Normal Mallampati classification: II Thyromental Distance: 4-6 cm Respiratory: Lungs clear Cardiovascular: Regular rate Plan Anesthesia Type: Total IV Consent for Procedure(s) Verified and Reviewed: Yes Code Status: Attempt Resuscitation ASA classification: 3-Severe systemic disease Is this case an emergency?: No
[2021-12-22] MEDS ORDERED: PROPOFOL 500 MG/50 ML 500 MG/50 ML VIAL ONE (14:14)
[2021-12-22] MEDS ORDERED: PROPOFOL 200 MG/20 ML VIAL IVP ONE (14:14)
[2021-12-22] MEDS ORDERED: SIMETHICONE 40 MG/0.6 ML 30 ML BOTTLE PO ONE (14:41)
--- NOTE | 2021-12-22 15:32 | ANESTHESIA POST OP EVALUATION ---
Anesthesia Post Eval - Post Anesthesia Eval Vitals: Last Vital Signs Temp 36.1 C L 12/22/21 15:22 Pulse 90 12/22/21 15:28 Resp 13 12/22/21 15:28 BP 114/63 12/22/21 15:22 Pulse Ox 100 12/22/21 15:28 O2 Flow Rate CV Function Including HR & BP: Stable Pain Control: Satisfactory Nausea & Vomiting: Negative Mental Status: Baseline Respiratory Status: Airway Patent Hydration Status: Satisfactory Anesthesia Complications: None
[2021-12-22 15:35] VITALS: BP 123/56
== END 2021-12-22 12:24 | disposition home or self-care (01) ==
LOC: SDS 12:23
PROVIDERS: ATTEND Surgery
PROC: 0DBL8ZZ Excision of Transverse Colon, Via Natural or Artificial Opening Endoscopic (ICD-10-PCS; 2021-12-22)
PROC: 0DBP8ZX Excision of Rectum, Via Natural or Artificial Opening Endoscopic, Diagnostic (ICD-10-PCS; 2021-12-22)
PROC: 0DBL8ZX Excision of Transverse Colon, Via Natural or Artificial Opening Endoscopic, Diagnostic (ICD-10-PCS; 2021-12-22)
PROC: 0DBN8ZX Excision of Sigmoid Colon, Via Natural or Artificial Opening Endoscopic, Diagnostic (ICD-10-PCS; 2021-12-22)
PROC: 0DBH8ZZ Excision of Cecum, Via Natural or Artificial Opening Endoscopic (ICD-10-PCS; principal; 2021-12-22 13:30)
DX: Z12.11 Encounter for screening for malignant neoplasm of colon (principal); D12.0 Benign neoplasm of cecum; D12.3 Benign neoplasm of transverse colon; D12.8 Benign neoplasm of rectum; K63.5 Polyp of colon; K57.30 Diverticulosis of large intestine without perforation or abscess without bleeding; E66.9 Obesity, unspecified; Z68.32 Body mass index [BMI] 32.0-32.9, adult; J44.9 Chronic obstructive pulmonary disease, unspecified; Z87.891 Personal history of nicotine dependence
CPT/HCPCS: 45380; 45385; A9270; J7120

== ENCOUNTER 2022-08-24 13:05 | Outpatient (CLI) | payer MEDICARE, OTHER ==
--- NOTE | 2022-08-27 08:55 | Mammography Report ---
UNILATERAL LEFT DIGITAL SCREENING MAMMOGRAM 3D/2D: 08/24/2022 CLINICAL: Routine screening. Personal history of right breast cancer. No prior exams were available for comparison. The left breast is heterogeneously dense, which may obscure small masses (category c / 51-75% glandul ar tissue). No significant masses, calcifications, or other findings are seen in the breast. IMPRESSION: NEGATIVE There is no mammographic evidence of malignancy. A 1 year screening mammogram is recommended. This exam was interpreted at Station ID: [id number]. NOTE: For mammograms, a report in lay terms will be sent to the patient. Approximately 15% of breast malignancies will not be visualized mammographically. In the management of a palpable breast mass, a negative mammogram must not discourage biopsy of a clinically suspicious lesion. Electronically Signed By: Robin addison/ronna:08/24/2022 17:03:31 letter sent: No_Letter ACR BI-RADS Category 1: Negative 3341F PARENCHYMAL PATTERN: (D) - The breast(s) demonstrate(s) heterogeneously dense fibroglandular fina rose. BI-RADS CATEGORY: (1) - 1 Mammogram [id number] 1 year screening LATERALITY: (B)
== END 2022-08-24 13:06 | disposition home or self-care (01) ==
LOC: DI 13:05
DX: Z12.31 Encounter for screening mammogram for malignant neoplasm of breast (principal); Z85.3 Personal history of malignant neoplasm of breast